=== PATIENT | female | born 1985 | race Caucasian/White ===

== ENCOUNTER 2018-04-02 10:55 | Emergency (ER) | payer OTHER, SELFPAY ==
[2018-04-02 11:00] VITALS: BP 120/83; PULSE 113; RESP 18; TEMP 37.6; O2SAT 100; BMI 22.3
--- NOTE | 2018-04-02 12:07 | ED.EXTPRO ---
HPI - Extremity Problem <KEMAL Benson - Last Filed: 04/02/18 22:12> General Chief complaint: Extremity Problem,Nontraumatic Stated complaint: NECK PAIN, ARM PAIN Time Seen by Provider: 04/02/18 11:17 Source: patient Mode of arrival: ambulatory Limitations: no limitations History of Present Illness HPI Narrative: 32-year-old healthy female that is a nonsmoker here for complaint of left shoulder/ chest pain that started this morning at approximately 8:00 a.m.. She denies any trauma to the area. She denies any shortness of breath. She states that her symptoms are feeling better at this time. she denies any strenuous activity. Pain radiates up into left trapezius area. she is ambulatory into the emergency room. She reports that she also had a period of dizziness earlier today as well. No nausea vomiting. No shortness of breath. She is able to speak full sentences. She denies any stressors or relievers of her symptoms. Related Data Home Medications Medication Instructions Recorded Confirmed Fish Oil 1 cap PO DAILY 04/02/18 04/02/18 Probiotic 1 cap PO DAILY 04/02/18 04/02/18 cholecalciferol (vitamin D3) 4,000 unit PO DAILY 04/02/18 04/02/18 [Vitamin D3] multivitamin 1 tab PO DAILY 04/02/18 04/02/18 Previous Rx's Medication Instructions Recorded cyclobenzaprine 10 mg PO TID PRN #15 tab 04/02/18 Allergies Allergy/AdvReac Type Severity Reaction Status Date / Time No Known Drug Allergies Allergy Verified 04/02/18 11:04 Review of Systems <KEMAL Benson - Last Filed: 04/02/18 22:12> Constitutional Denies chills, Denies fatigue, Denies fever(s), Denies lethargy and Denies weakness Eyes Denies change in vision, Denies eye discharge, Denies irritation and Denies loss of vision ENT Ears, Nose, Mouth, and Throat: Denies change in voice, Denies neck pain and Denies sore throat Cardiovascular Reports chest pain, Denies dyspnea and Denies dyspnea on exertion Respiratory Denies cough, Denies dyspnea, Denies dyspnea on exertion and Denies wheezing Gastrointestinal Gastrointestinal: Denies abdominal pain, Denies change in bowel habits, Denies diarrhea, Denies nausea and Denies vomiting Genitourinary Denies hematuria, Denies flank pain, Denies urinary incontinence and Denies urinary urgency Musculoskeletal Denies neck pain Comments: Left shoulder pain Integumentary/Breasts Denies pruritus, Denies erythema, Denies rash and Denies wounds Neurologic Denies confusion, Denies loss of vision and Denies weakness Psychiatric Denies anxiety, Denies confusion, Denies depression, Denies homicidal ideation and Denies suicidal ideation Endocrine Denies fatigue and Denies flushing Hematologic/Lymphatic Denies easy bruising Allergic/Immunologic Denies wheezing PFSH <KEMAL Benson - Last Filed: 04/02/18 22:12> Social History Smoking Status: Never smoker Social History Smoking Status: Never smoker Exam <KEMAL Benson - Last Filed: 04/02/18 22:12> Initial Vital Signs Initial Vital Signs: Vital Signs Temperature 99.7 F H 04/02/18 11:00 Pulse Rate 113 H 04/02/18 11:00 Respiratory Rate 18 04/02/18 11:00 Blood Pressure 120/83 04/02/18 11:00 Pulse Oximetry 100 04/02/18 11:00 Const General: cooperative and well developed Nutritional Appearance: well nourished Orientation: alert, awake, oriented x3 and not confused [facility] Mouth: oral mucosae normal and moist mucous membranes Eyes Conjunctivae: conjunctivae normal Sclera: sclerae normal Pupils: PERRL EOM: EOM intact bilaterally Neck Neck: normal visual inspection, trachea midline, No lymphadenopathy, No midline deformity and No JVD Lymphatic: No lymphedema Other: tenderness on palpation to the left trapezius radiating into left cervical paraspinal full range of motion. No midline tenderness. Chest Chest: normal inspection of the chest Resp Effort & Inspection: normal respiratory effort, able to speak in complete sentences, no respiratory distress and no use of accessory muscles Auscultation: clear to auscultation bilaterally, no rales, no rhonchi and no wheezes Cardio Rate: regular rate Rhythm: regular rhythm Heart Sounds: no click, no gallops, no murmurs and no rubs Pulses: normal peripheral pulses GI Inspection: non-distended Palpation: soft, no hepatosplenomegaly, No guarding, No pulsatile mass and No tender Auscultation: normal bowel sounds Skin General: no rashes or lesions noted, No jaundice and No petechiae Neuro General: alert, oriented x3, gait normal and no focal motor deficits Speech: speech normal <DO Carlos Wilkinson Last Filed: 04/03/18 07:09> Initial Vital Signs Initial Vital Signs: Vital Signs Temperature 99.7 F H 04/02/18 11:00 Pulse Rate 113 H 04/02/18 11:00 Respiratory Rate 18 04/02/18 11:00 Blood Pressure 120/83 04/02/18 11:00 Pulse Oximetry 100 04/02/18 11:00 Course <KEMAL Benson - Last Filed: 04/02/18 22:12> Orders Ordered: Discontinued Medications Sodium Chloride (Normal Saline 0.9%) 1,000 mls @ 1,000 mls/hr IV BOLUS ONE Stop: 04/02/18 13:12 Last Admin: 04/02/18 12:38 Dose: 1,000 mls/hr Vital Signs - 8 hr 04/02/18 15:00 04/02/18 16:18 Pulse Rate 85 72 Respiratory Rate 16 18 Blood Pressure 114/72 Blood Pressure [Right Arm] 113/74 Pulse Oximetry 100 100 <DO Carlos Wilkinson Last Filed: 04/03/18 07:09> Orders Ordered: Discontinued Medications Sodium Chloride (Normal Saline 0.9%) 1,000 mls @ 1,000 mls/hr IV BOLUS ONE Stop: 04/02/18 13:12 Last Admin: 04/02/18 12:38 Dose: 1,000 mls/hr Vital Signs - 8 hr 04/02/18 15:00 04/02/18 16:18 Pulse Rate 85 72 Respiratory Rate 16 18 Blood Pressure 114/72 Blood Pressure [Right Arm] 113/74 Pulse Oximetry 100 100 MDM - Extremity (Nontraumatic) <KEMAL Benson - Last Filed: 04/02/18 22:12> Lab Data Result diagrams: 04/02/18 13:21 04/02/18 12:58 Lab Results 04/02/18 04/02/18 04/02/18 Range/Units 12:58 13:21 13:21 WBC 4.2 L (4.5-11.0) X10^3/uL RBC 4.27 (4.0-5.2) X10^6/uL Hgb 13.7 (12.0-16.0) g/dL Hct 40.6 (36-46) % MCV 95.2 (80-100) fL MCH 32.2 (26-34) PG MCHC 33.8 (30-36) % RDW 12.5 (11.6-14.8) % Plt Count 237 (150-400) X10^3/uL Neut % (Auto) 71.3 (50-75) % Lymph % (Auto) 21.5 L (25-40) % [place] % (Auto) 6.4 (3-14) % Eos % (Auto) 0.2 L (2-4) % Baso % (Auto) 0.6 (0-2) % Neut # (Auto) 3000 (6402-8959) /uL Lymph # (Auto) 900 L (0991-5625) /uL [place] # (Auto) 300 (0-900) /uL Eos # (Auto) 0 (0-450) /uL Baso # (Auto) 0 (0-100) /uL D-Dimer < 200 (<230) ng/mL Sodium 142 (137-145) mmol/L Potassium 3.4 (3.4-5.1) mmol/L Chloride 103 (98-107) mmol/L Carbon Dioxide 26 (22-32) mmol/L BUN 6 L (7-17) mg/dL Creatinine 0.60 (0.52-1.04) mg/dL Estimated GFR > 60.0 (>60) mL/min BUN/Creatinine Ratio 10.0 (6-22) Glucose 86 (70-100) mg/dL Calcium 9.4 (8.4-10.2) mg/dL Total Bilirubin 0.5 (0.2-1.3) mg/dL AST 24 (14-36) IU/L ALT 18 (9-52) IU/L Alkaline Phosphatase 44 (38-126) U/L Total Creatine Kinase 36 (30-135) U/L CK-MB (CK-2) TNP CK-MB (CK-2) Rel Index TNP Troponin I < 0.012 (0.01-0.034) ng/mL Total Protein 7.7 (6.3-8.2) g/dL Albumin 4.9 (3.5-5.0) g/dL Globulin 2.8 (1.7-4.1) g/dL Albumin/Globulin Ratio 1.8 (1.0-2.8) / Range/Units 15:02 WBC (4.5-11.0) X10^3/uL RBC (4.0-5.2) X10^6/uL Hgb (12.0-16.0) g/dL Hct (36-46) % MCV (80-100) fL MCH (26-34) PG MCHC (30-36) % RDW (11.6-14.8) % Plt Count (150-400) X10^3/uL Neut % (Auto) (50-75) % Lymph % (Auto) (25-40) % [place] % (Auto) (3-14) % Eos % (Auto) (2-4) % Baso % (Auto) (0-2) % Neut # (Auto) (2226-6669) /uL Lymph # (Auto) (5369-2964) /uL [place] # (Auto) (0-900) /uL Eos # (Auto) (0-450) /uL Baso # (Auto) (0-100) /uL D-Dimer (<230) ng/mL Sodium (137-145) mmol/L Potassium (3.4-5.1) mmol/L Chloride (98-107) mmol/L Carbon Dioxide (22-32) mmol/L BUN (7-17) mg/dL Creatinine (0.52-1.04) mg/dL Estimated GFR (>60) mL/min BUN/Creatinine Ratio (6-22) Glucose (70-100) mg/dL Calcium (8.4-10.2) mg/dL Total Bilirubin (0.2-1.3) mg/dL AST (14-36) IU/L ALT (9-52) IU/L Alkaline Phosphatase (38-126) U/L Total Creatine Kinase (30-135) U/L CK-MB (CK-2) CK-MB (CK-2) Rel Index Troponin I < 0.012 (0.01-0.034) ng/mL Total Protein (6.3-8.2) g/dL Albumin (3.5-5.0) g/dL Globulin (1.7-4.1) g/dL Albumin/Globulin Ratio (1.0-2.8) Point of Care Testing Test Results Negative Urine Dip Bedside Urine Glucose Negative Bedside Urine Bilirubin - Negative Bedside Urine Ketone - Negative Urine Specific [place] 1.010 Bedside Urine Occult Blood - Negative Bedside Urine pH 6.0 Bedside Urine Protein - Negative Bedside Urine Urobilinogen - Negative Bedside Urine Nitrite - Negative Bedside Urine Leukocytes - Negative Esterase Imaging Data CT scan - head: Radiologist's impression: [address] [address] [address] Scan Report Signed Patient: JUNG SMITH [facility]#: [id number] : 1985Acct:[id number] Age/Sex: 32 / FDate of Service: 04/02/18 Loc: ED Accession Number: [id number] Procedure: CT head/brain wo con Ordering Provider: Jay Terry PROCEDURE: CT HEAD/BRAIN WO CON INDICATIONS: Dizziness TECHNIQUE: Noncontrast 4.5 mm thick angled axial sections acquired from the foramen magnum to the vertex, with coronal and sagittal reformats. For radiation dose reduction, the following was used: automated exposure control, adjustment of mA and/or kV according to patient size. COMPARISON: None. FINDINGS: Image quality: Excellent. CSF spaces: Basal cisterns are patent. No extra-axial fluid collections. Ventricles are normal in size and shape. Brain: No midline shift. No intracranial masses or hemorrhage. Garsia-white matter interface is normal. Skull and face: Calvarium and visualized facial bones are intact, without suspicious lesions. Sinuses: Visualized sinuses and mastoids are clear. IMPRESSION: Normal for age, source of current symptoms is not seen. Dictated by: Baljit Triplett M.D. on 04/02/2018 at 14:17 Approved by: Baljit Triplett M.D. on 04/02/2018 at 14:17 Chest x-ray: Radiologist's impression: [address] [address] XRay Report Signed Patient: JUNG SMITH [facility]#: [id number] : 1985Acct:[id number] Age/Sex: 32 / FDate of Service: 04/02/18 Loc: ED Accession Number: [id number] Procedure: XR chest 1V Ordering Provider: Jay Terry PROCEDURE: XR CHEST 1V INDICATIONS: Left shoulder/ chest pain TECHNIQUE: One view of the chest was acquired. COMPARISON: None. FINDINGS: Surgical changes and devices: None. Lungs and pleura: Lungs are clear. No pleural effusions or pneumothorax. Mediastinum: Mediastinal contours appear normal. Heart size is normal. Bones and chest wall: No suspicious bony lesions. Overlying soft tissues appear unremarkable. IMPRESSION: Negative chest. No acute cardiopulmonary process is evident. Dictated by: Darrion Matthews M.D. on 04/02/2018 at 11:30 Approved by: Darrion Matthews M.D. on 04/02/2018 at 11:30 ECG Data Interpretation: EKG shows normal sinus rhythm with no ST elevation or depression. No ectopy. Ventricular rate of 90. Pr interval of 161. QRS duration of 86. QTC of 408 MDM Narrative Medical decision making narrative: CBC and Chem panel were obtained were unremarkable. Cardiac enzymes were obtained and were negative. Repeat cardiac enzymes were drawn and were also negative. D-dimer was normal. Due to dizziness CT of the head was obtained and was negative. Chest x-ray was also obtained and was also negative. EKG shows sinus rhythm with no ST elevation or depression. No ectopy. Signs and symptoms presents as muscle skeletal pain at to left shoulder and chest area. Differential of anxiety. [id number] Tylenol Motrin as needed for any discomfort. Follow up with primary care provider later this week for re-evaluation. For any worsening symptoms return to the emergency room. <Arnel Noel DO - Last Filed: 04/03/18 07:09> Lab Data Lab Results 04/02/18 04/02/18 04/02/18 Range/Units 12:58 13:21 13:21 WBC 4.2 L (4.5-11.0) X10^3/uL RBC 4.27 (4.0-5.2) X10^6/uL Hgb 13.7 (12.0-16.0) g/dL Hct 40.6 (36-46) % MCV 95.2 (80-100) fL MCH 32.2 (26-34) PG MCHC 33.8 (30-36) % RDW 12.5 (11.6-14.8) % Plt Count 237 (150-400) X10^3/uL Neut % (Auto) 71.3 (50-75) % Lymph % (Auto) 21.5 L (25-40) % [place] % (Auto) 6.4 (3-14) % Eos % (Auto) 0.2 L (2-4) % Baso % (Auto) 0.6 (0-2) % Neut # (Auto) 3000 (2610-0125) /uL Lymph # (Auto) 900 L (4022-2257) /uL [place] # (Auto) 300 (0-900) /uL Eos # (Auto) 0 (0-450) /uL Baso # (Auto) 0 (0-100) /uL D-Dimer < 200 (<230) ng/mL Sodium 142 (137-145) mmol/L Potassium 3.4 (3.4-5.1) mmol/L Chloride 103 (98-107) mmol/L Carbon Dioxide 26 (22-32) mmol/L BUN 6 L (7-17) mg/dL Creatinine 0.60 (0.52-1.04) mg/dL Estimated GFR > 60.0 (>60) mL/min BUN/Creatinine Ratio 10.0 (6-22) Glucose 86 (70-100) mg/dL Calcium 9.4 (8.4-10.2) mg/dL Total Bilirubin 0.5 (0.2-1.3) mg/dL AST 24 (14-36) IU/L ALT 18 (9-52) IU/L Alkaline Phosphatase 44 (38-126) U/L Total Creatine Kinase 36 (30-135) U/L CK-MB (CK-2) TNP CK-MB (CK-2) Rel Index TNP Troponin I < 0.012 (0.01-0.034) ng/mL Total Protein 7.7 (6.3-8.2) g/dL Albumin 4.9 (3.5-5.0) g/dL Globulin 2.8 (1.7-4.1) g/dL Albumin/Globulin Ratio 1.8 (1.0-2.8) 04/02/18 Range/Units 15:02 WBC (4.5-11.0) X10^3/uL RBC (4.0-5.2) X10^6/uL Hgb (12.0-16.0) g/dL Hct (36-46) % MCV (80-100) fL MCH (26-34) PG MCHC (30-36) % RDW (11.6-14.8) % Plt Count (150-400) X10^3/uL Neut % (Auto) (50-75) % Lymph % (Auto) (25-40) % [place] % (Auto) (3-14) % Eos % (Auto) (2-4) % Baso % (Auto) (0-2) % Neut # (Auto) (6950-2214) /uL Lymph # (Auto) (1790-1783) /uL [place] # (Auto) (0-900) /uL Eos # (Auto) (0-450) /uL Baso # (Auto) (0-100) /uL D-Dimer (<230) ng/mL Sodium (137-145) mmol/L Potassium (3.4-5.1) mmol/L Chloride (98-107) mmol/L Carbon Dioxide (22-32) mmol/L BUN (7-17) mg/dL Creatinine (0.52-1.04) mg/dL Estimated GFR (>60) mL/min BUN/Creatinine Ratio (6-22) Glucose (70-100) mg/dL Calcium (8.4-10.2) mg/dL Total Bilirubin (0.2-1.3) mg/dL AST (14-36) IU/L ALT (9-52) IU/L Alkaline Phosphatase (38-126) U/L Total Creatine Kinase (30-135) U/L CK-MB (CK-2) CK-MB (CK-2) Rel Index Troponin I < 0.012 (0.01-0.034) ng/mL Total Protein (6.3-8.2) g/dL Albumin (3.5-5.0) g/dL Globulin (1.7-4.1) g/dL Albumin/Globulin Ratio (1.0-2.8) Point of Care Testing Test Results Negative Urine Dip Bedside Urine Glucose Negative Bedside Urine Bilirubin - Negative Bedside Urine Ketone - Negative Urine Specific [place] 1.010 Bedside Urine Occult Blood - Negative Bedside Urine pH 6.0 Bedside Urine Protein - Negative Bedside Urine Urobilinogen - Negative Bedside Urine Nitrite - Negative Bedside Urine Leukocytes - Negative Esterase Discharge Plan Departure Patient Disposition: Home Clinical Impression: Acute pain of left shoulder Discharge Date/Time: 04/02/18 16:28 Interventions: ED Discharge Assessment Last Done: 04/02/18 16:18 Instructions: DI for Shoulder Pain Activity Restrictions/Additional Instructions: EKG was obtained and was unremarkable. Chest x-ray and head CT was also obtained and was unremarkable. Cardiac enzymes today were negative. Other lab work was normal. Signs and symptoms presents as muscle skeletal pain to the left shoulder area. Differential of anxiety may be causing some of her symptoms. Follow up with her primary care provider in the next few days for re-evaluation. Use [id number] Tylenol or Motrin as needed for any discomfort. Cyclobenzaprine as prescribed to help with muscle tension use as directed. No driving while on the muscle relaxers can make you drowsy.For any worsening symptoms return to the emergency room. Prescriptions: New cyclobenzaprine 10 mg tablet 10 mg PO TID PRN (Reason: muscle spasm) Qty: 15 RF: 0 No Action multivitamin Tablet 1 tab PO DAILY RF: 0 Vitamin D3 4,000 unit Capsule 4,000 unit PO DAILY RF: 0 Fish Oil 1 cap PO DAILY RF: 0 Probiotic 1 cap PO DAILY RF: 0 Referrals: Rylee Griffin MD [Primary Care Provider] - <Arnel Noel DO - Last Filed: 04/03/18 07:09> Cosign ED Attending Gale Attestation: I was available for consultation during this patient's emergency department encounter
[2018-04-02 12:08] VITALS: BP 107/70; PULSE 74; RESP 18; O2SAT 100
--- NOTE | 2018-04-02 12:09 | PC.NURSE ---
Patient appears anxious. States her pain is gone but states she has had 4 episodes of this this week. Pt informed of wait. Has family at bedside.
--- NOTE | 2018-04-02 12:13 | DI.RAD.S_ITS ---
PROCEDURE: XR CHEST 1V INDICATIONS: Left shoulder/ chest pain TECHNIQUE: One view of the chest was acquired. COMPARISON: None. FINDINGS: Surgical changes and devices: None. Lungs and pleura: Lungs are clear. No pleural effusions or pneumothorax. Mediastinum: Mediastinal contours appear normal. Heart size is normal. Bones and chest wall: No suspicious bony lesions. Overlying soft tissues appear unremarkable. IMPRESSION: Negative chest. No acute cardiopulmonary process is evident. Dictated by: Darrion Matthews M.D. on 04/02/2018 at 11:30 Approved by: Darrion Matthews M.D. on 04/02/2018 at 11:30
--- NOTE | 2018-04-02 12:19 | ED_ITS ---
HPI - Extremity Problem <KEMAL Benson - Last Filed: 04/02/18 22:12> General Chief complaint: Extremity Problem,Nontraumatic Stated complaint: NECK PAIN, ARM PAIN Time Seen by Provider: 04/02/18 11:17 Source: patient Mode of arrival: ambulatory Limitations: no limitations History of Present Illness HPI Narrative: 32-year-old healthy female that is a nonsmoker here for complaint of left shoulder/ chest pain that started this morning at approximately 8:00 a.m.. She denies any trauma to the area. She denies any shortness of breath. She states that her symptoms are feeling better at this time. she denies any strenuous activity. Pain radiates up into left trapezius area. she is ambulatory into the emergency room. She reports that she also had a period of dizziness earlier today as well. No nausea vomiting. No shortness of breath. She is able to speak full sentences. She denies any stressors or relievers of her symptoms. Related Data Home Medications Medication Instructions Recorded Confirmed Fish Oil 1 cap PO DAILY 04/02/18 04/02/18 Probiotic 1 cap PO DAILY 04/02/18 04/02/18 cholecalciferol (vitamin D3) 4,000 unit PO DAILY 04/02/18 04/02/18 [Vitamin D3] multivitamin 1 tab PO DAILY 04/02/18 04/02/18 Previous Rx's Medication Instructions Recorded cyclobenzaprine 10 mg PO TID PRN #15 tab 04/02/18 Allergies Allergy/AdvReac Type Severity Reaction Status Date / Time No Known Drug Allergies Allergy Verified 04/02/18 11:04 Review of Systems <KEMAL Benson - Last Filed: 04/02/18 22:12> Constitutional Denies chills, Denies fatigue, Denies fever(s), Denies lethargy and Denies weakness Eyes Denies change in vision, Denies eye discharge, Denies irritation and Denies loss of vision ENT Ears, Nose, Mouth, and Throat: Denies change in voice, Denies neck pain and Denies sore throat Cardiovascular Reports chest pain, Denies dyspnea and Denies dyspnea on exertion Respiratory Denies cough, Denies dyspnea, Denies dyspnea on exertion and Denies wheezing Gastrointestinal Gastrointestinal: Denies abdominal pain, Denies change in bowel habits, Denies diarrhea, Denies nausea and Denies vomiting Genitourinary Denies hematuria, Denies flank pain, Denies urinary incontinence and Denies urinary urgency Musculoskeletal Denies neck pain Comments: Left shoulder pain Integumentary/Breasts Denies pruritus, Denies erythema, Denies rash and Denies wounds Neurologic Denies confusion, Denies loss of vision and Denies weakness Psychiatric Denies anxiety, Denies confusion, Denies depression, Denies homicidal ideation and Denies suicidal ideation Endocrine Denies fatigue and Denies flushing Hematologic/Lymphatic Denies easy bruising Allergic/Immunologic Denies wheezing PFSH <KEMAL Benson - Last Filed: 04/02/18 22:12> Social History Smoking Status: Never smoker Social History Smoking Status: Never smoker Exam <KEMAL Benson - Last Filed: 04/02/18 22:12> Initial Vital Signs Initial Vital Signs: Vital Signs Temperature 99.7 F H 04/02/18 11:00 Pulse Rate 113 H 04/02/18 11:00 Respiratory Rate 18 04/02/18 11:00 Blood Pressure 120/83 04/02/18 11:00 Pulse Oximetry 100 04/02/18 11:00 Const General: cooperative and well developed Nutritional Appearance: well nourished Orientation: alert, awake, oriented x3 and not confused [facility] Mouth: oral mucosae normal and moist mucous membranes Eyes Conjunctivae: conjunctivae normal Sclera: sclerae normal Pupils: PERRL EOM: EOM intact bilaterally Neck Neck: normal visual inspection, trachea midline, No lymphadenopathy, No midline deformity and No JVD Lymphatic: No lymphedema Other: tenderness on palpation to the left trapezius radiating into left cervical paraspinal full range of motion. No midline tenderness. Chest Chest: normal inspection of the chest Resp Effort & Inspection: normal respiratory effort, able to speak in complete sentences, no respiratory distress and no use of accessory muscles Auscultation: clear to auscultation bilaterally, no rales, no rhonchi and no wheezes Cardio Rate: regular rate Rhythm: regular rhythm Heart Sounds: no click, no gallops, no murmurs and no rubs Pulses: normal peripheral pulses GI Inspection: non-distended Palpation: soft, no hepatosplenomegaly, No guarding, No pulsatile mass and No tender Auscultation: normal bowel sounds Skin General: no rashes or lesions noted, No jaundice and No petechiae Neuro General: alert, oriented x3, gait normal and no focal motor deficits Speech: speech normal <DO Carlos Wilkinson Last Filed: 04/03/18 07:09> Initial Vital Signs Initial Vital Signs: Vital Signs Temperature 99.7 F H 04/02/18 11:00 Pulse Rate 113 H 04/02/18 11:00 Respiratory Rate 18 04/02/18 11:00 Blood Pressure 120/83 04/02/18 11:00 Pulse Oximetry 100 04/02/18 11:00 Course <KEMAL Benson - Last Filed: 04/02/18 22:12> Orders Ordered: Discontinued Medications Sodium Chloride (Normal Saline 0.9%) 1,000 mls @ 1,000 mls/hr IV BOLUS ONE Stop: 04/02/18 13:12 Last Admin: 04/02/18 12:38 Dose: 1,000 mls/hr Vital Signs - 8 hr 04/02/18 15:00 04/02/18 16:18 Pulse Rate 85 72 Respiratory Rate 16 18 Blood Pressure 114/72 Blood Pressure [Right Arm] 113/74 Pulse Oximetry 100 100 <DO Carlos Wilkinson Last Filed: 04/03/18 07:09> Orders Ordered: Discontinued Medications Sodium Chloride (Normal Saline 0.9%) 1,000 mls @ 1,000 mls/hr IV BOLUS ONE Stop: 04/02/18 13:12 Last Admin: 04/02/18 12:38 Dose: 1,000 mls/hr Vital Signs - 8 hr 04/02/18 15:00 04/02/18 16:18 Pulse Rate 85 72 Respiratory Rate 16 18 Blood Pressure 114/72 Blood Pressure [Right Arm] 113/74 Pulse Oximetry 100 100 MDM - Extremity (Nontraumatic) <KEMAL Benson - Last Filed: 04/02/18 22:12> Lab Data Result diagrams: 04/02/18 13:21 04/02/18 12:58 Lab Results 04/02/18 04/02/18 04/02/18 Range/Units 12:58 13:21 13:21 WBC 4.2 L (4.5-11.0) X10^3/uL RBC 4.27 (4.0-5.2) X10^6/uL Hgb 13.7 (12.0-16.0) g/dL Hct 40.6 (36-46) % MCV 95.2 (80-100) fL MCH 32.2 (26-34) PG MCHC 33.8 (30-36) % RDW 12.5 (11.6-14.8) % Plt Count 237 (150-400) X10^3/uL Neut % (Auto) 71.3 (50-75) % Lymph % (Auto) 21.5 L (25-40) % [place] % (Auto) 6.4 (3-14) % Eos % (Auto) 0.2 L (2-4) % Baso % (Auto) 0.6 (0-2) % Neut # (Auto) 3000 (2524-6240) /uL Lymph # (Auto) 900 L (8823-1225) /uL [place] # (Auto) 300 (0-900) /uL Eos # (Auto) 0 (0-450) /uL Baso # (Auto) 0 (0-100) /uL D-Dimer < 200 (<230) ng/mL Sodium 142 (137-145) mmol/L Potassium 3.4 (3.4-5.1) mmol/L Chloride 103 (98-107) mmol/L Carbon Dioxide 26 (22-32) mmol/L BUN 6 L (7-17) mg/dL Creatinine 0.60 (0.52-1.04) mg/dL Estimated GFR > 60.0 (>60) mL/min BUN/Creatinine Ratio 10.0 (6-22) Glucose 86 (70-100) mg/dL Calcium 9.4 (8.4-10.2) mg/dL Total Bilirubin 0.5 (0.2-1.3) mg/dL AST 24 (14-36) IU/L ALT 18 (9-52) IU/L Alkaline Phosphatase 44 (38-126) U/L Total Creatine Kinase 36 (30-135) U/L CK-MB (CK-2) TNP CK-MB (CK-2) Rel Index TNP Troponin I < 0.012 (0.01-0.034) ng/mL Total Protein 7.7 (6.3-8.2) g/dL Albumin 4.9 (3.5-5.0) g/dL Globulin 2.8 (1.7-4.1) g/dL Albumin/Globulin Ratio 1.8 (1.0-2.8) / Range/Units 15:02 WBC (4.5-11.0) X10^3/uL RBC (4.0-5.2) X10^6/uL Hgb (12.0-16.0) g/dL Hct (36-46) % MCV (80-100) fL MCH (26-34) PG MCHC (30-36) % RDW (11.6-14.8) % Plt Count (150-400) X10^3/uL Neut % (Auto) (50-75) % Lymph % (Auto) (25-40) % [place] % (Auto) (3-14) % Eos % (Auto) (2-4) % Baso % (Auto) (0-2) % Neut # (Auto) (0820-7885) /uL Lymph # (Auto) (6402-5702) /uL [place] # (Auto) (0-900) /uL Eos # (Auto) (0-450) /uL Baso # (Auto) (0-100) /uL D-Dimer (<230) ng/mL Sodium (137-145) mmol/L Potassium (3.4-5.1) mmol/L Chloride (98-107) mmol/L Carbon Dioxide (22-32) mmol/L BUN (7-17) mg/dL Creatinine (0.52-1.04) mg/dL Estimated GFR (>60) mL/min BUN/Creatinine Ratio (6-22) Glucose (70-100) mg/dL Calcium (8.4-10.2) mg/dL Total Bilirubin (0.2-1.3) mg/dL AST (14-36) IU/L ALT (9-52) IU/L Alkaline Phosphatase (38-126) U/L Total Creatine Kinase (30-135) U/L CK-MB (CK-2) CK-MB (CK-2) Rel Index Troponin I < 0.012 (0.01-0.034) ng/mL Total Protein (6.3-8.2) g/dL Albumin (3.5-5.0) g/dL Globulin (1.7-4.1) g/dL Albumin/Globulin Ratio (1.0-2.8) Point of Care Testing Test Results Negative Urine Dip Bedside Urine Glucose Negative Bedside Urine Bilirubin - Negative Bedside Urine Ketone - Negative Urine Specific [place] 1.010 Bedside Urine Occult Blood - Negative Bedside Urine pH 6.0 Bedside Urine Protein - Negative Bedside Urine Urobilinogen - Negative Bedside Urine Nitrite - Negative Bedside Urine Leukocytes - Negative Esterase Imaging Data CT scan - head: Radiologist's impression: [address] [address] [address] Scan Report Signed Patient: [facility]#: [id number] : 1985Acct:[id number] Age/Sex: 32 / FDate of Service: 04/02/18 Loc: ED Accession Number: [id number] Procedure: CT head/brain wo con Ordering Provider: Jay Terry PROCEDURE: CT HEAD/BRAIN WO CON INDICATIONS: Dizziness TECHNIQUE: Noncontrast 4.5 mm thick angled axial sections acquired from the foramen magnum to the vertex, with coronal and sagittal reformats. For radiation dose reduction, the following was used: automated exposure control, adjustment of mA and/or kV according to patient size. COMPARISON: None. FINDINGS: Image quality: Excellent. CSF spaces: Basal cisterns are patent. No extra-axial fluid collections. Ventricles are normal in size and shape. Brain: No midline shift. No intracranial masses or hemorrhage. Garsia-white matter interface is normal. Skull and face: Calvarium and visualized facial bones are intact, without suspicious lesions. Sinuses: Visualized sinuses and mastoids are clear. IMPRESSION: Normal for age, source of current symptoms is not seen. Dictated by: Baljit Triplett M.D. on 04/02/2018 at 14:17 Approved by: Baljit Triplett M.D. on 04/02/2018 at 14:17 Chest x-ray: Radiologist's impression: [address] [address] XRay Report Signed Patient: [facility]#: [id number] : 1985Acct:[id number] Age/Sex: 32 / FDate of Service: 04/02/18 Loc: ED Accession Number: [id number] Procedure: XR chest 1V Ordering Provider: Jay Terry PROCEDURE: XR CHEST 1V INDICATIONS: Left shoulder/ chest pain TECHNIQUE: One view of the chest was acquired. COMPARISON: None. FINDINGS: Surgical changes and devices: None. Lungs and pleura: Lungs are clear. No pleural effusions or pneumothorax. Mediastinum: Mediastinal contours appear normal. Heart size is normal. Bones and chest wall: No suspicious bony lesions. Overlying soft tissues appear unremarkable. IMPRESSION: Negative chest. No acute cardiopulmonary process is evident. Dictated by: Darrion Matthews M.D. on 04/02/2018 at 11:30 Approved by: Darrion Matthews M.D. on 04/02/2018 at 11:30 ECG Data Interpretation: EKG shows normal sinus rhythm with no ST elevation or depression. No ectopy. Ventricular rate of 90. Pr interval of 161. QRS duration of 86. QTC of 408 MDM Narrative Medical decision making narrative: CBC and Chem panel were obtained were unremarkable. Cardiac enzymes were obtained and were negative. Repeat cardiac enzymes were drawn and were also negative. D-dimer was normal. Due to dizziness CT of the head was obtained and was negative. Chest x-ray was also o btained and was also negative. EKG shows sinus rhythm with no ST elevation or depression. No ectopy. Signs and symptoms presents as muscle skeletal pain at to left shoulder and chest area. Differential of anxiety. [id number] Tylenol Motrin as needed for any discomfort. Follow up with primary care provider later this week for re-evaluation. For any worsening symptoms return to the emergency room. <Arnel Noel DO - Last Filed: 04/03/18 07:09> Lab Data Lab Results 04/02/18 04/02/18 04/02/18 Range/Units 12:58 13:21 13:21 WBC 4.2 L (4.5-11.0) X10^3/uL RBC 4.27 (4.0-5.2) X10^6/uL Hgb 13.7 (12.0-16.0) g/dL Hct 40.6 (36-46) % MCV 95.2 (80-100) fL MCH 32.2 (26-34) PG MCHC 33.8 (30-36) % RDW 12.5 (11.6-14.8) % Plt Count 237 (150-400) X10^3/uL Neut % (Auto) 71.3 (50-75) % Lymph % (Auto) 21.5 L (25-40) % [place] % (Auto) 6.4 (3-14) % Eos % (Auto) 0.2 L (2-4) % Baso % (Auto) 0.6 (0-2) % Neut # (Auto) 3000 (2253-6100) /uL Lymph # (Auto) 900 L (4229-0757) /uL [place] # (Auto) 300 (0-900) /uL Eos # (Auto) 0 (0-450) /uL Baso # (Auto) 0 (0-100) /uL D-Dimer < 200 (<230) ng/mL Sodium 142 (137-145) mmol/L Potassium 3.4 (3.4-5.1) mmol/L Chloride 103 (98-107) mmol/L Carbon Dioxide 26 (22-32) mmol/L BUN 6 L (7-17) mg/dL Creatinine 0.60 (0.52-1.04) mg/dL Estimated GFR > 60.0 (>60) mL/min BUN/Creatinine Ratio 10.0 (6-22) Glucose 86 (70-100) mg/dL Calcium 9.4 (8.4-10.2) mg/dL Total Bilirubin 0.5 (0.2-1.3) mg/dL AST 24 (14-36) IU/L ALT 18 (9-52) IU/L Alkaline Phosphatase 44 (38-126) U/L Total Creatine Kinase 36 (30-135) U/L CK-MB (CK-2) TNP CK-MB (CK-2) Rel Index TNP Troponin I < 0.012 (0.01-0.034) ng/mL Total Protein 7.7 (6.3-8.2) g/dL Albumin 4.9 (3.5-5.0) g/dL Globulin 2.8 (1.7-4.1) g/dL Albumin/Globulin Ratio 1.8 (1.0-2.8) 04/02/18 Range/Units 15:02 WBC (4.5-11.0) X10^3/uL RBC (4.0-5.2) X10^6/uL Hgb (12.0-16.0) g/dL Hct (36-46) % MCV (80-100) fL MCH (26-34) PG MCHC (30-36) % RDW (11.6-14.8) % Plt Count (150-400) X10^3/uL Neut % (Auto) (50-75) % Lymph % (Auto) (25-40) % [place] % (Auto) (3-14) % Eos % (Auto) (2-4) % Baso % (Auto) (0-2) % Neut # (Auto) (6405-3486) /uL Lymph # (Auto) (2459-0263) /uL [place] # (Auto) (0-900) /uL Eos # (Auto) (0-450) /uL Baso # (Auto) (0-100) /uL D-Dimer (<230) ng/mL Sodium (137-145) mmol/L Potassium (3.4-5.1) mmol/L Chloride (98-107) mmol/L Carbon Dioxide (22-32) mmol/L BUN (7-17) mg/dL Creatinine (0.52-1.04) mg/dL Estimated GFR (>60) mL/min BUN/Creatinine Ratio (6-22) Glucose (70-100) mg/dL Calcium (8.4-10.2) mg/dL Total Bilirubin (0.2-1.3) mg/dL AST (14-36) IU/L ALT (9-52) IU/L Alkaline Phosphatase (38-126) U/L Total Creatine Kinase (30-135) U/L CK-MB (CK-2) CK-MB (CK-2) Rel Index Troponin I < 0.012 (0.01-0.034) ng/mL Total Protein (6.3-8.2) g/dL Albumin (3.5-5.0) g/dL Globulin (1.7-4.1) g/dL Albumin/Globulin Ratio (1.0-2.8) Point of Care Testing Test Results Negative Urine Dip Bedside Urine Glucose Negative Bedside Urine Bilirubin - Negative Bedside Urine Ketone - Negative Urine Specific [place] 1.010 Bedside Urine Occult Blood - Negative Bedside Urine pH 6.0 Bedside Urine Protein - Negative Bedside Urine Urobilinogen - Negative Bedside Urine Nitrite - Negative Bedside Urine Leukocytes - Negative Esterase Discharge Plan Departure Patient Disposition: Home Clinical Impression: Acute pain of left shoulder Discharge Date/Time: 04/02/18 16:28 Interventions: ED Discharge Assessment Last Done: 04/02/18 16:18 Instructions: DI for Shoulder Pain Activity Restrictions/Additional Instructions: EKG was obtained and was unremarkable. Chest x-ray and head CT was also obtained and was unremarkable. Cardiac enzymes today were negative. Other lab work was normal. Signs and symptoms presents as muscle skeletal pain to the left shoulder area. Differential of anxiety may be causing some of her symptoms. Follow up with her primary care provider in the next few days for re- evaluation. Use [id number] Tylenol or Motrin as needed for any discomfort. Cyclobenzaprine as prescribed to help with muscle tension use as directed. No driving while on the muscle relaxers can make you drowsy.For any worsening symptoms return to the emergency room. Prescriptions: New cyclobenzaprine 10 mg tablet 10 mg PO TID PRN (Reason: muscle spasm) Qty: 15 RF: 0 No Action multivitamin Tablet 1 tab PO DAILY RF: 0 Vitamin D3 4,000 unit Capsule 4,000 unit PO DAILY RF: 0 Fish Oil 1 cap PO DAILY RF: 0 Probiotic 1 cap PO DAILY RF: 0 Referrals: Rylee Griffin MD [Primary Care Provider] - <Arnel Noel DO - Last Filed: 04/03/18 07:09> Cosign ED Attending Gale Attestation: I was available for consultation during this patient's emergency department encounter
[2018-04-02] MEDS: SODIUM CHLORIDE 0.9% 1,000 ML 1000 ML IV (12:38)
[2018-04-02 13:00] VITALS: BP 110/81; PULSE 67; RESP 19; O2SAT 100
[2018-04-02 13:19] LABS: Alanine Aminotransferase 18 IU/L (9-52); Albumin 4.9 g/dL (3.5-5.0); Albumin Globulin Ratio 1.8 (1.0-2.8); Alkaline Phosphatase 44 U/L (38-126); Aspartate Aminotransferase 24 IU/L (14-36); Bilirubin Total 0.5 mg/dL (0.2-1.3); Blood Urea Nitrogen 6 mg/dL (7-17); Calcium 9.4 mg/dL (8.4-10.2); Carbon Dioxide 26 mmol/L (22-32); Chloride 103 mmol/L (98-107); Creatine Kinase 36 U/L (30-135); Estimated Glomerular Filt Rate > 60.0 mL/min (>60); Globulin 2.8 g/dL (1.7-4.1); Glucose 86 mg/dL (70-100); Potassium 3.4 mmol/L (3.4-5.1); Sodium 142 mmol/L (137-145); Total Protein 7.7 g/dL (6.3-8.2)
[2018-04-02 13:28] LABS: Add Manual Diff / Slide Review NO; Basophils Absolute Auto 0 /uL (0-100); Basophils Percent Auto 0.6 % (0-2); Eosinophils Absolute Auto 0 /uL (0-450); Eosinophils Percent Auto 0.2 % (2-4); Hematocrit 40.6 % (36-46); Hemoglobin 13.7 g/dL (12.0-16.0); Lymphocytes Absolute Auto 900 /uL (1100-4500); Lymphocytes Percent Auto 21.5 % (25-40); Mean Corpuscular HGB Conc 33.8 % (30-36); Mean Corpuscular Hemoglobin 32.2 PG (26-34); Mean Corpuscular Volume 95.2 fL (80-100); Monocytes Absolute Auto 300 /uL (0-900); Monocytes Percent Auto 6.4 % (3-14); Neutrophils Absolute Auto 3000 /uL (1500-7000); Neutrophils Percent Auto 71.3 % (50-75); Platelet Count 237 X10^3/uL (150-400); Red Blood Cell Count 4.27 X10^6/uL (4.0-5.2); Red Cell Distribution Width 12.5 % (11.6-14.8); White Blood Cell Count 4.2 X10^3/uL (4.5-11.0)
[2018-04-02 13:32] LABS: HEMOLYSIS < 15 (0-50); Troponin I < 0.012 ng/mL (0.01-0.034)
[2018-04-02 13:38] LABS: D Dimer < 200 ng/mL (<230)
--- NOTE | 2018-04-02 13:51 | DI.CT.S_ITS ---
PROCEDURE: CT HEAD/BRAIN WO CON INDICATIONS: Dizziness TECHNIQUE: Noncontrast 4.5 mm thick angled axial sections acquired from the foramen magnum to the vertex, with coronal and sagittal reformats. For radiation dose reduction, the following was used: automated exposure control, adjustment of mA and/or kV according to patient size. COMPARISON: None. FINDINGS: Image quality: Excellent. CSF spaces: Basal cisterns are patent. No extra-axial fluid collections. Ventricles are normal in size and shape. Brain: No midline shift. No intracranial masses or hemorrhage. Garsia-white matter interface is normal. Skull and face: Calvarium and visualized facial bones are intact, without suspicious lesions. Sinuses: Visualized sinuses and mastoids are clear. IMPRESSION: Normal for age, source of current symptoms is not seen. Dictated by: Baljit Triplett M.D. on 04/02/2018 at 14:17 Approved by: Baljit Triplett M.D. on 04/02/2018 at 14:17
--- NOTE | 2018-04-02 13:57 | PC.NURSE ---
Patient tearful regarding CT. I explained the exam and reasons behind it. Pt verbalizes understanding. Given opportunity to ask questions and denies further concerns at this time. Pt states she has been having debilitating headaches with this dizziness but denies headache at this time. States she is feeling lightheaded.
[2018-04-02 15:00] VITALS: BP 113/74; PULSE 85; RESP 16; O2SAT 100
[2018-04-02 15:36] LABS: Troponin I < 0.012 ng/mL (0.01-0.034)
[2018-04-02 16:18] VITALS: BP 114/72; PULSE 72; RESP 18; O2SAT 100
--- NOTE | 2018-04-30 21:54 | PC.NURSE ---
Late entry Patient received a bolus of Normal saline.Medication was stopped at 1438 when bolus had finished.
== END 2018-04-02 16:28 | disposition home or self-care (01) ==
PROVIDERS: Emergency Provider Nurse Practitioner Family; PCP Family Medicine
DX: R07.89 Other chest pain (principal)
CPT/HCPCS: 36415; 36591; 70450; 71045; 80053; 81003; 81025; 82550; 84484; 85025; 85379; 93005; 96360; 96361; 99283; 99285

== ENCOUNTER → 2018-05-20 13:39 | Outpatient (CLI) | payer OTHER, SELFPAY ==
--- NOTE | 2018-05-20 | DI.MG.S_ITS ---
BILATERAL DIGITAL DIAGNOSTIC MAMMOGRAM 3D/2D: 05/20/2018 CLINICAL: Right breast lump. Family history of breast cancer. Comparison is made to exam dated: 04/16/2017 mammogram - TOPS. The tissue of both breasts is extremely dense, which lowers the sensitivity of mammography. NO mammographic finding to correspond to patient's lump in the lateral right breast. No significant masses, calcifications, or other findings are seen in either breast. IMPRESSION: INCOMPLETE: NEEDS ADDITIONAL IMAGING EVALUATION No focal mammographic finding to correlate with the patient's palpable abnormality. Ultrasound is recommended for further evaluation, especially given patient's dense breast tissue. There is no mammographic evidence of malignancy. This exam was interpreted at Station ID: [id number]. NOTE: For mammograms, a report in lay terms will be sent to the patient. Approximately 15% of breast malignancies will not be visualized mammographically. In the management of a palpable breast mass, a negative mammogram must not discourage biopsy of a clinically suspicious lesion. Electronically Signed By: Madhuri pandey/:05/20/2018 15:38:08 ACR BI-RADS Category 0: Incomplete [id number]
--- NOTE | 2018-05-20 15:07 | DI.US.S_ITS ---
LIMITED ULTRASOUND OF RIGHT BREAST: 05/20/2018 CLINICAL: Palpable right breast lump x 1 year. Comparison is made to exams dated: 05/20/2018 [facility] and 04/16/2017 mammogram - [facility]. Ultrasound of the right breast 10 o'clock region was performed. No abnormalities were seen sonographically in the right breast. No focal findings in area of patient's lump. IMPRESSION: NEGATIVE There is no sonographic evidence of malignancy, and no focal lesion to explain patient's lump. Return to annual mammogram screening schedule is recommended. Findings and recommendations were conveyed to the patient. This exam was interpreted at Station ID: [id number]. Electronically Signed By: Madhuri pandey/:05/20/2018 15:48:47 letter sent: Normal Exam Ultrasound BI-RADS: 1 Negative
== END ==
PROVIDERS: PCP Family Medicine; Visit Provider Family Medicine
DX: Z80.3 Family history of malignant neoplasm of breast (principal)
CPT/HCPCS: 76642; 77066; G0279

== ENCOUNTER → 2019-11-11 10:57 | Outpatient (CLI) | payer OTHER, SELFPAY ==
[2019-11-12 08:59] LABS: COVID19 Sendout Not Detected (Not Detect)
== END ==
PROVIDERS: PCP Family Medicine; Visit Provider Physician Assistant
DX: Z11.59 Encounter for screening for other viral diseases (principal)
CPT/HCPCS: 87635